=== PATIENT | female | born 2000 | race Caucasian/White ===

== ENCOUNTER 2018-02-07 18:51 | Emergency (ER) | payer OTHER ==
[2018-02-07] MEDS: ONDANSETRON (ODT) 4 MG TAB ODT (20:20)
[2018-02-07] MEDS: HYDROCODONE/APAP (5/325) TAB PO (20:20)
== END 2018-02-07 21:00 | disposition home or self-care (01) ==
LOC: FTE 18:51
DX: S13.4XXA Sprain of ligaments of cervical spine, initial encounter (principal); V49.40XA Driver injured in collision with unspecified motor vehicles in traffic accident, initial encounter
CPT/HCPCS: 72040; 81025; 99283-25

== ENCOUNTER 2018-10-26 19:18 | Emergency (ER) | payer OTHER ==
[2018-10-26 19:41] LABS: URINE BLOOD (Dip) POC 3+ (NEGATIVE); URINE GLUCOSE (Dip) POC Negative (NEGATIVE); URINE KETONES (Dip) POC Negative (NEGATIVE); URINE LEUKOCYTE EST (Dip) POC Negative (NEGATIVE); URINE NITRITE (Dip) POC Negative (NEGATIVE); URINE TOTAL PROTEIN POC 1+ (NEGATIVE)
[2018-10-26] MEDS: LIDOCAINE/MYLANTA 40 ML BTL PO (19:50)
[2018-10-26] MEDS: FAMOTIDINE 20 MG TAB PO (19:51)
[2018-10-26] MEDS: LOPERAMIDE 2 MG CAP PO (19:57)
[2018-10-26] MEDS ORDERED: DIPHTH/TET/ACEL PERTUSS (ADULT) 0.5 ML VIAL IM* (20:00)
[2018-10-26] MEDS ORDERED: IBUPROFEN 800 MG TAB PO (20:00)
== END 2018-10-26 19:55 | disposition home or self-care (01) ==
LOC: FTE 19:18
DX: K29.00 Acute gastritis without bleeding (principal); K59.1 Functional diarrhea
CPT/HCPCS: 81003; 81025; 99283